=== PATIENT | female | born 2000 | race Caucasian/White ===

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

== ENCOUNTER 2021-06-19 13:04 | Emergency (ER) | payer OTHER ==
[2021-06-19] MEDS ORDERED: HYDROcodone/Acetaminophen 5/325 mg Tablet ONE (14:27)
[2021-06-19] MEDS ORDERED: Clindamycin 150 MG CAP ONE (14:38)
== END 2021-06-19 14:45 | disposition home or self-care (01) ==
LOC: MADERS 13:04
DX: K08.89 Other specified disorders of teeth and supporting structures (principal); L03.211 Cellulitis of face; F17.210 Nicotine dependence, cigarettes, uncomplicated
CPT/HCPCS: 99283